=== PATIENT | male | born 1995 | race Caucasian/White ===

== ENCOUNTER 2016-07-27 16:14 | Emergency (ER) | payer OTHER ==
[~2016-07-27] VITALS: Ht 193 cm; Wt 61.2 kg
[2016-07-27 16:15] VITALS: BP 121/71
[2016-07-27] MEDS ORDERED: SERT25TA PO (16:27)
[2016-07-27] MEDS ORDERED: NORCO 5/325MG TABLET (BULK FOR ED) PO ONE (17:30)
--- NOTE | 2016-07-28 01:34 | REP ---
Clinical: Trauma. Technique: AP, lateral, bilateral oblique views of the left foot. Findings: There is an oblique, closed, mildly angulated and displaced fracture involving the fourth proximal phalanx. No subcutaneous emphysema or radiodense foreign body. The remainder of the examination appears normal. Impression: Closed oblique fracture of the fourth toe proximal phalanx. Signed by Dion Chambers MD 07/28/2016 01:26 A
== END 2016-07-27 17:49 | disposition home or self-care (01) ==
LOC: M ED 17:44
DX: S92.512A Displaced fracture of proximal phalanx of left lesser toe(s), initial encounter for closed fracture (principal); W20.8XXA Other cause of strike by thrown, projected or falling object, initial encounter; Y92.099 Unspecified place in other non-institutional residence as the place of occurrence of the external cause; Y93.9 Activity, unspecified; Y99.9 Unspecified external cause status; F41.9 Anxiety disorder, unspecified; F32.9 Major depressive disorder, single episode, unspecified; F17.200 Nicotine dependence, unspecified, uncomplicated; Z79.899 Other long term (current) drug therapy